=== PATIENT | female | born 1965 | race African-American/Black ===

== ENCOUNTER 2019-11-21 05:28 | Emergency (ER) | payer MEDICAID ==
[~2019-11-21] VITALS: Ht 170.2 cm; Wt 65.0 kg
[2019-11-21] MEDS ORDERED: ALBUTEROL (0.083%) 2.5MG/3ML NEB HHN STA (06:11)
[2019-11-21] MEDS ORDERED: IPRATROPIUM BROMIDE (0.02%) 0.5MG/2.5ML NEB HHN STA (06:11)
[2019-11-21] MEDS ORDERED: PREDNISONE 20MG TABLET PO STA (06:11)
[2019-11-21] MEDS ORDERED: MAGNESIUM 2 G PREMIX 50 ML IV ONE (06:30)
[2019-11-21] MEDS ORDERED: SODIUM CHLORIDE 0.9% 1,000 ML IV ONE (06:45)
[2019-11-21 07:15] LABS: CHLORIDE 112 mEq/L (98-107)
[2019-11-21 07:17] LABS: EOSINOPHILS % 4.2 % (0.0-5.0); HEMOGLOBIN. 7.1 g/dL (12.0-16.0); LYMPHOCYTES % 38.9 % (20.0-50.0); MEAN CORPUSCULAR HEMOGLOBIN 27.9 pg (28.0-32.0); MEAN CORPUSCULAR VOLUME 86.5 fL (81.0-99.0); MEAN PLATELET VOLUME 7.2 fl (7.4-10.4); MONOCYTES % 8.8 % (2.0-8.0); NEUTROPHILS % 47.1 % (40.0-76.0); PLATELET 282 x1000/uL (130-400); RED BLOOD CELL COUNT 2.55 mill/uL (4.2-5.4); RED CELL DISTRIBUTION WIDTH 13.4 % (11.6-14.6)
[2019-11-21] MEDS ORDERED: AMOXICILLIN/POTASSIUM CLAVULANATE 875/125MG TAB PO ONE (08:30)
[2019-11-21] MEDS ORDERED: AZITHROMYCIN 500 MG TABLET PO ONE (08:30)
[2019-11-21 11:33] VITALS: BP 118/78
== END 2019-11-21 11:35 | disposition home or self-care (01) ==
LOC: ER 05:28
DX: R06.02 Shortness of breath (principal); J45.909 Unspecified asthma, uncomplicated; I10 Essential (primary) hypertension
CPT/HCPCS: 36415; 71045; 80048; 84484; 85025; 93005; 94640; 96365; 96366; 99285; J3475; J7030; J7512; Z7610

== ENCOUNTER 2020-12-10 10:19 | Emergency (ER) | payer MEDICAID ==
[~2020-12-10] VITALS: Ht 167.6 cm; Wt 69.0 kg
[~2020-12-10 10:19] MED LIST: ESK450 PO; QUET100T PO; VENL75CA56 PO
[2020-12-10] MEDS ORDERED: ACETAMINOPHEN 325MG TABLET PO STA (10:59)
[2020-12-10] MEDS ORDERED: ACET-2708 PO (12:20)
[2020-12-10 12:27] VITALS: BP 136/74
== END 2020-12-10 12:28 | disposition home or self-care (01) ==
LOC: ER 10:28
DX: S80.01XA Contusion of right knee, initial encounter (principal); J45.909 Unspecified asthma, uncomplicated; I10 Essential (primary) hypertension; F14.10 Cocaine abuse, uncomplicated; W01.0XXA Fall on same level from slipping, tripping and stumbling without subsequent striking against object, initial encounter; Y93.89 Activity, other specified; Y92.89 Other specified places as the place of occurrence of the external cause; Y99.8 Other external cause status; Z86.73 Personal history of transient ischemic attack (TIA), and cerebral infarction without residual deficits
CPT/HCPCS: 73502; 73562; 99284

== ENCOUNTER 2021-10-05 07:41 | Emergency (ER) | payer MEDICAID ==
[~2021-10-05] VITALS: Ht 167.6 cm; Wt 78.0 kg
[~2021-10-05 07:41] MED LIST changes: +ACET-2708 PO
[2021-10-05 07:50] VITALS: BP 146/89
[2021-10-05] MEDS ORDERED: DIPH28.34 TP (08:46)
[2021-10-05] MEDS ORDERED: PERM60CR4 TP (08:46)
== END 2021-10-05 09:32 | disposition home or self-care (01) ==
LOC: ER 09:01
DX: B86 Scabies (principal); I10 Essential (primary) hypertension
CPT/HCPCS: 99282

== ENCOUNTER 2022-01-10 15:28 | Emergency (ER) | payer MEDICAID, OTHER ==
[~2022-01-10] VITALS: Ht 162.6 cm; Wt 62.0 kg
[~2022-01-10 15:28] MED LIST changes: +DIPH28.34 TP; +PERM60CR4 TP
[2022-01-10] MEDS ORDERED: KETOROLAC 15MG/ML VIAL IV ONE (16:15)
[2022-01-10 17:07] LABS: BASOPHILS % 0.2 % (0.0-2.0); EOSINOPHILS % 0.1 % (0.0-5.0); HEMATOCRIT. 31.9 % (36.0-48.0); LYMPHOCYTES % 12.4 % (20.0-50.0); MEAN CORPUSCULAR HEMOGLOBIN 25.7 pg (28.0-32.0); MEAN CORPUSCULAR VOLUME 81.7 fL (81.0-99.0); MEAN PLATELET VOLUME 8.8 fl (7.4-10.4); MONOCYTES % 7.9 % (2.0-8.0); NEUTROPHILS % 79.4 % (40.0-76.0); PLATELET 217 x1000/uL (130-400); RED BLOOD CELL COUNT 3.91 mill/uL (4.2-5.4); RED CELL DISTRIBUTION WIDTH 15.2 % (11.6-14.6)
[2022-01-10 17:12] LABS: CHLORIDE 103 mEq/L (98-107)
[2022-01-10] MEDS ORDERED: SODIUM CHLORIDE 0.9% 1,000 ML IV ONE (17:45)
[2022-01-10] MEDS ORDERED: ACETAMINOPHEN 325MG TABLET PO ONE (18:15)
[2022-01-10 18:48] VITALS: BP 129/67
[2022-01-10] MEDS ORDERED: ALBU6.7H3 INH (18:52)
== END 2022-01-10 19:32 | disposition home or self-care (01) ==
LOC: ER 15:28
DX: J06.9 Acute upper respiratory infection, unspecified (principal); Z20.822 Contact with and (suspected) exposure to COVID-19; D64.9 Anemia, unspecified; R73.9 Hyperglycemia, unspecified; I10 Essential (primary) hypertension; J45.909 Unspecified asthma, uncomplicated; Z86.73 Personal history of transient ischemic attack (TIA), and cerebral infarction without residual deficits
CPT/HCPCS: 36415; 71045; 80053; 84484; 85025; 87426; 87804; 93005; 96361; 96374; 99285; C9803; J1885

== ENCOUNTER 2022-12-03 23:58 | Emergency (ER) | payer OTHER ==
[~2022-12-03] VITALS: Ht 168.9 cm; Wt 81.0 kg
[~2022-12-03 23:58] MED LIST changes: +ALBU6.7H3 INH
[2022-12-04 00:41] VITALS: BP 164/78; O2SAT 99
[2022-12-04] MEDS ORDERED: CEPH500C2 MT (01:26)
[2022-12-04 01:45] VITALS: PULSE 75; RESP 17; TEMP 98.3
== END 2022-12-04 01:46 | disposition home or self-care (01) ==
LOC: ER 23:58
DX: S10.96XD Insect bite of unspecified part of neck, subsequent encounter (principal); J45.909 Unspecified asthma, uncomplicated; I10 Essential (primary) hypertension; F14.90 Cocaine use, unspecified, uncomplicated; Z86.73 Personal history of transient ischemic attack (TIA), and cerebral infarction without residual deficits; Z88.0 Allergy status to penicillin; X58.XXXD Exposure to other specified factors, subsequent encounter
CPT/HCPCS: 99283

== ENCOUNTER 2024-02-16 13:33 | Emergency (ER) | payer MEDICAID, OTHER ==
[~2024-02-16] VITALS: Ht 167.6 cm; Wt 58.0 kg
[~2024-02-16 13:33] MED LIST changes: +ACET-2708 MT; +CEPH500C2 MT; +ISOT10CA MT; +ISOT10CA PO; +ISOT20CA MT; +ISOT20CA PO; +ISOT30CA MT; +ISOT30CA PO; +ISOT40CA MT; +ISOT40CA PO
[2024-02-16 13:36] VITALS: O2SAT 99
[2024-02-16 14:18] VITALS: BP 127/90; PULSE 82; RESP 16; TEMP 98.8; O2SAT 100
[2024-02-16 15:10] LABS: BASOPHILS % 1.2 % (0.0-2.0); DIFFERENTIAL COMMENT 0; EOSINOPHILS % 2.9 % (0.0-5.0); HEMATOCRIT. 24.9 % (36.0-48.0); HEMOGLOBIN. 7.2 g/dL (12.0-16.0); LYMPHOCYTES % 27.1 % (20.0-50.0); MEAN CORPUSCULAR HEMOGLOBIN 20.4 pg (28.0-32.0); MEAN CORPUSCULAR VOLUME 70.5 fL (81.0-99.0); MONOCYTES % 9.9 % (2.0-8.0); NEUTROPHILS % 58.9 % (40.0-76.0); PLATELET 277 x1000/uL (130-400); RED BLOOD CELL COUNT 3.53 mill/uL (4.2-5.4); WHITE BLOOD COUNT 4.6 x1000/uL (4.5-11.0)
[2024-02-16 15:16] LABS: CHLORIDE 107 mEq/L (98-107); SODIUM 142 mEq/L (136-145)
[2024-02-16 15:17] LABS: CARBON DIOXIDE 29 mEq/L (21-32)
[2024-02-16 15:18] LABS: CALCIUM 9.5 mg/dL (8.7-10.4)
[2024-02-16 15:21] LABS: TROPONIN I HIGH SENSITIVITY 10 ng/L (3.0-34)
[2024-02-16 15:22] LABS: CREATININE 0.9 mg/dL (0.6-1.0); GLUCOSE 94 mg/dL (70-105); UREA NITROGEN BLOOD 14 mg/dL (9-23)
== END 2024-02-16 21:52 | disposition left against medical advice (07) ==
LOC: ER 13:40
DX: R06.02 Shortness of breath (principal); Z53.21 Procedure and treatment not carried out due to patient leaving prior to being seen by health care provider
CPT/HCPCS: 36415; 71045; 80048; 84484; 85025; 93005

== ENCOUNTER 2024-03-17 03:32 | Emergency (ER) | payer MEDICAID ==
[~2024-03-17] VITALS: Ht 167.6 cm; Wt 71.0 kg
[2024-03-17 03:47] VITALS: O2SAT 100
[2024-03-17 03:50] VITALS: BP 188/82; PULSE 75; RESP 16; TEMP 37; O2SAT 99
[2024-03-17] MEDS: ACETAMINOPHEN 500MG TABLET PO ONE (04:59)
== END 2024-03-17 05:35 | disposition home or self-care (01) ==
LOC: ER 03:32
DX: T23.052A Burn of unspecified degree of left palm, initial encounter (principal); T23.051A Burn of unspecified degree of right palm, initial encounter; I10 Essential (primary) hypertension; J45.909 Unspecified asthma, uncomplicated; Z88.0 Allergy status to penicillin; Z79.899 Other long term (current) drug therapy; Z86.73 Personal history of transient ischemic attack (TIA), and cerebral infarction without residual deficits; X58.XXXA Exposure to other specified factors, initial encounter; Y93.89 Activity, other specified; Y92.89 Other specified places as the place of occurrence of the external cause; Y99.8 Other external cause status
CPT/HCPCS: 99282

== ENCOUNTER 2024-09-02 21:46 | Emergency (ER) | payer MEDICAID, OTHER ==
[~2024-09-02] VITALS: Ht 165.1 cm; Wt 87.0 kg
[2024-09-02 21:49] VITALS: O2SAT 100
[2024-09-02] MEDS: ACETAMINOPHEN 500MG TABLET PO ONE (22:17)
[2024-09-02] MEDS: AMLODIPINE 10MG TABLET PO ONE (22:17)
[2024-09-02 22:46] LABS: BASOPHILS % 0.7 % (0.0-2.0); EOSINOPHILS % 1.3 % (0.0-5.0); HEMATOCRIT. 24.0 % (36.0-48.0); HEMOGLOBIN. 7.1 g/dL (12.0-16.0); LYMPHOCYTES % 15.4 % (20.0-50.0); MEAN PLATELET VOLUME 8.3 fl (7.4-10.4); MONOCYTES % 10.6 % (2.0-8.0); NEUTROPHILS % 72.0 % (40.0-76.0); PLATELET 265 x1000/uL (130-400); RED BLOOD CELL COUNT 3.86 mill/uL (4.2-5.4); RED CELL DISTRIBUTION WIDTH 19.6 % (11.6-14.6)
[2024-09-02 22:48] LABS: ADD RBC MORPHOLOGY YES
[2024-09-02 22:59] LABS: CREATININE 1.0 mg/dL (0.6-1.0)
[2024-09-02 23:00] LABS: ETHANOL BLOOD < 10 mg/dL (<10); TROPONIN I HIGH SENSITIVITY 14 ng/L (3.0-34); UREA NITROGEN BLOOD 16 mg/dL (9-23)
[2024-09-02 23:02] LABS: PLATELET ESTIMATE NORMAL
[2024-09-02] MEDS: HYDROCHLOROTHIAZIDE 25MG TABLET PO ONE (23:26)
[2024-09-03 04:05] VITALS: BP 178/86; PULSE 81; RESP 14; TEMP 37.1; O2SAT 97
== END 2024-09-03 04:03 | disposition admitted as inpatient to this hospital (09) ==
LOC: ER 21:46 → EDBEDREQ 09-03 01:35 → ER 09-03 04:03 → CANBEDREQ 09-03 04:54
DX: D64.9 Anemia, unspecified (principal); R51.9 Headache, unspecified; F17.200 Nicotine dependence, unspecified, uncomplicated; F14.10 Cocaine abuse, uncomplicated; I10 Essential (primary) hypertension; Z88.0 Allergy status to penicillin; Z79.899 Other long term (current) drug therapy; Z86.73 Personal history of transient ischemic attack (TIA), and cerebral infarction without residual deficits
CPT/HCPCS: 36415; 36430; 80048; 80320; 82550; 84484; 85025; 85044; 86850; 86900; 86920; 99291; A4606; P9016; G0480

== ENCOUNTER 2024-12-03 16:27 | Emergency (ER) | payer OTHER ==
[~2024-12-03] VITALS: Ht 160 cm; Wt 59.0 kg
[~2024-12-03 16:27] MED LIST changes: -ACET-2708 MT; -ACET-2708 PO; -ALBU6.7H3 INH; +AMLO10TA80 MT; -CEPH500C2 MT; +CYCL10TA21 MT; -DIPH28.34 TP; -ESK450 PO; +HYDR50TA40 MT; -ISOT10CA MT; -ISOT10CA PO; -ISOT20CA MT; -ISOT20CA PO; -ISOT30CA MT; -ISOT30CA PO; -ISOT40CA MT; -ISOT40CA PO; +KETO10TA2 MT; +LOSA50TA41 MT; -PERM60CR4 TP; -QUET100T PO; -VENL75CA56 PO
[2024-12-03 16:35] VITALS: O2SAT 98
[2024-12-03] MEDS ORDERED: ACETAMINOPHEN 325MG TABLET PO ONE (20:00)
[2024-12-03] MEDS ORDERED: KETOROLAC 15MG/ML VIAL IV ONE (20:00)
[2024-12-03] MEDS: ONDANSETRON HCL 4MG/2ML INJ IV ONE (20:43)
[2024-12-03] MEDS: MORPHINE SULFATE 4 MG/ML INJ (FOR IV/IM USE) IV ONE (20:43)
[2024-12-03 21:04] LABS: BASOPHILS % 0.5 % (0.0-2.0); EOSINOPHILS % 2.2 % (0.0-5.0); HEMATOCRIT. 28.3 % (36.0-48.0); HEMOGLOBIN. 8.6 g/dL (12.0-16.0); LYMPHOCYTES % 22.0 % (20.0-50.0); MEAN PLATELET VOLUME 6.8 fl (7.4-10.4); MONOCYTES % 9.9 % (2.0-8.0); NEUTROPHILS % 65.4 % (40.0-76.0); PLATELET 264 x1000/uL (130-400); RED BLOOD CELL COUNT 3.74 mill/uL (4.2-5.4); RED CELL DISTRIBUTION WIDTH 22.0 % (11.6-14.6)
[2024-12-03 21:05] LABS: ADD RBC MORPHOLOGY YES
[2024-12-03 21:25] LABS: CREATININE 0.7 mg/dL (0.6-1.0); UREA NITROGEN BLOOD 10 mg/dL (9-23)
[2024-12-03 21:37] LABS: PLATELET ESTIMATE NORMAL
[2024-12-04 00:47] VITALS: BP 153/81; PULSE 80; RESP 16; TEMP 36.7; O2SAT 100
== END 2024-12-04 01:25 | disposition short-term general hospital (02) ==
LOC: ER 16:27 → CMPBEDREQ 12-04 07:27
DX: M48.061 Spinal stenosis, lumbar region without neurogenic claudication (principal); M54.50 Low back pain, unspecified; I10 Essential (primary) hypertension; F14.90 Cocaine use, unspecified, uncomplicated; Z79.899 Other long term (current) drug therapy; Z88.1 Allergy status to other antibiotic agents; Z88.0 Allergy status to penicillin
CPT/HCPCS: 80048; 80320; 85025; 36415; 96374; 96375; 99285; J1885; J2405; J2270; Z7610 ×2; G0480